=== PATIENT | male | born 1965 | race Caucasian/White ===

== ENCOUNTER → 2017-11-18 | Outpatient (CLI) | payer BC ==
[~2017-11-18] VITALS: Ht 180.3 cm; Wt 113.4 kg
[~2017-11-18] MED LIST: CELEXA20 MG PO; MEN'S MULTI-VI1 EACH PO; MOTRIN800 MG PO
== END | disposition home or self-care (01) ==
LOC: AMB 13:00
DX: D12.3 Benign neoplasm of transverse colon (principal); K64.8 Other hemorrhoids; I10 Essential (primary) hypertension; F41.8 Other specified anxiety disorders; Z88.0 Allergy status to penicillin; Z72.0 Tobacco use
CPT/HCPCS: 88305; 93005; J1885; J2250